=== PATIENT | female | born 1985 | race Asian ===

== ENCOUNTER 2017-04-09 12:08 | Emergency (ER) | payer OTHER ==
[2017-04-09] MEDS ORDERED: NACL 0.9% 1000 ML 1,000 ML IV ONE (13:17)
[2017-04-09 13:53] LABS: Anion Gap 17 mmol/L; Blood Urea Nitrogen 9 mg/dL (7-17); Calcium 8.9 mg/dL (8.4-10.2); Carbon Dioxide 26 mmol/L (22-30); Chloride 100.8 mmol/L (98-107); Glucose 86 mg/dL (65-100); Potassium 3.6 mmol/L (3.6-5.0); Sodium 140 mmol/L (137-145)
[2017-04-09 14:25] LABS: Basophils % (Auto) 0.7 % (0.0-1.8); Eosinophils % (Auto) 1.6 % (0.0-4.3); Hemoglobin 10.5 gm/dl (10.1-14.3); Mean Corpuscular HGB Conc 31 % (30-34); Platelet Count 337 K/mm3 (140-440); Red Cell Distribution Width 18.8 % (13.2-15.2); White Blood Count 4.9 K/mm3 (4.5-11.0)
[2017-04-09 14:26] LABS: Mean Corpuscular Hemoglobin 20 pg (28-32); Mean Corpuscular Volume 64 fl (79-97)
--- NOTE | 2017-04-09 14:47 | Emergency Department Report ---
ED General Adult HPI - General Chief complaint: Dizziness Stated complaint: PHY REF/DIZZINESS/ANEMIA/HYPOTENSION Time Seen by Provider: 04/09/17 13:16 Source: patient Mode of arrival: Ambulatory Limitations: No Limitations - History of Present Illness Initial comments: The patient was sent by Dr. Prado her primary care provider when she was found to have blood pressure 90/60. The patient tells me quite clearly that this was a routine exam and that she was asymptomatic. Dr. Prado reports that she had a hemoglobin of 10.9. The patient again is completely asymptomatic here. Her review of systems is entirely negative. A repeat blood pressure is within the normal range. She denies any recent travel. -: unknown Associated Symptoms: denies other symptoms - Related Data Allergies Allergy/AdvReac Type Severity Reaction Status Date / Time No Known Allergies Allergy Verified 04/09/17 12:45 ED Review of Systems ROS: Stated complaint: PHY REF/DIZZINESS/ANEMIA/HYPOTENSION Other details as noted in HPI Constitutional: denies: chills, fever Eyes: denies: eye pain, eye discharge, vision change ENT: denies: ear pain, throat pain Respiratory: denies: cough, shortness of breath, wheezing Cardiovascular: denies: chest pain, palpitations Endocrine: no symptoms reported Gastrointestinal: denies: abdominal pain, nausea, diarrhea Genitourinary: denies: urgency, dysuria, discharge Musculoskeletal: denies: back pain, joint swelling, arthralgia Skin: denies: rash, lesions Neurological: denies: headache, weakness, paresthesias Psychiatric: denies: anxiety, depression Hematological/Lymphatic: denies: easy bleeding, easy bruising ED Past Medical Hx - Past Medical History Previous Medical History?: Yes Additional medical history: cholesterol - Surgical History Past Surgical History?: Yes Additional Surgical History: , sinus - Social History Smoking Status: Never Smoker Substance Use Type: None ED Physical Exam - General Limitations: No Limitations General appearance: alert, in no apparent distress - Head Head exam: Present: atraumatic, normocephalic - Eye Eye exam: Present: normal appearance, PERRL, EOMI. Absent: scleral icterus - ENT ENT exam: Present: mucous membranes moist - Neck Neck exam: Present: normal inspection - Respiratory Respiratory exam: Present: normal lung sounds bilaterally. Absent: respiratory distress - Cardiovascular Cardiovascular Exam: Present: regular rate, normal rhythm. Absent: systolic murmur, diastolic murmur, rubs, gallop - GI/Abdominal GI/Abdominal exam: Present: soft, normal bowel sounds. Absent: distended, tenderness, guarding, rebound, rigid - Extremities Exam Extremities exam: Present: normal inspection - Back Exam Back exam: Present: normal inspection - Neurological Exam Neurological exam: Present: alert, oriented X3, CN II-XII intact. Absent: motor sensory deficit - Psychiatric Psychiatric exam: Present: normal affect, normal mood - Skin Skin exam: Present: warm, dry, intact, normal color. Absent: rash ED Course Vital Signs 04/09/17 12:42 Temperature 98.8 F Pulse Rate 67 Respiratory 16 Rate Blood Pressure 98/68 O2 Sat by Pulse 100 Oximetry - Reevaluation(s) Reevaluation #1: Patient advised to take by mouth fluids. She is persistently asymptomatic. Her laboratory testing does not indicate an indication for further emergency department workup for stabilization. Her blood pressure is normal. She is somewhat slender and denies history of hypertension. 04/09/17 14:46 ED Medical Decision Making - Lab Data Result diagrams: 04/09/17 13:23 04/09/17 13:23 Laboratory Results - last 24 hr 04/09/17 04/09/17 04/09/17 13:23 13:23 13:23 WBC 4.9 RBC 5.30 H Hgb 10.5 Hct 34.0 MCV 64 L MCH 20 L MCHC 31 RDW 18.8 H Plt Count 337 Lymph % (Auto) 38.6 H [place] % (Auto) 7.4 H Eos % (Auto) 1.6 Baso % (Auto) 0.7 Lymph # 1.9 [place] # 0.4 Eos # 0.1 Baso # 0.0 Seg Neutrophils % 51.7 Seg Neutrophils # 2.5 Sodium 140 Potassium 3.6 Chloride 100.8 Carbon Dioxide 26 Anion Gap 17 BUN 9 Creatinine 0.5 L Estimated GFR > 60 BUN/Creatinine Ratio 18.00 Glucose 86 Calcium 8.9 HCG, Qual Negative Critical care attestation.: If time is entered above; I have spent that time in minutes in the direct care of this critically ill patient, excluding procedure time. ED Disposition Clinical Impression: Hypotensive episode Anemia Qualifiers: Anemia type: unspecified type Qualified Code(s): D64.9 - Anemia, unspecified Disposition: DC- TO HOME OR SELFCARE Is pt being admited?: No Does the pt Need Aspirin: No Condition: Stable Instructions: Anemia (ED) Additional Instructions: You have a itst-rl-[id number] anemia. Further workup is recommended with your primary care doctor Dr. Prado or a workers compensation claims specialist who I have referred due to. Increase fluid intake. Return any specific symptoms. Referrals: DAVON ARIZA MD [Staff Physician] - 3-5 Days EDUARDO PRADO MD [Staff Physician] - 2-3 Days Time of Disposition: 14:48
[2017-04-09 14:58] VITALS: BP 100/55
[2017-04-09 15:48] LABS: Bacteria,Urine 1+ /HPF (Negative); Bilirubin,Urine NEG (Negative); Blood,Urine SM (Negative); Ketones,Urine NEG (Negative); Leukocyte Esterase,Urine SM (Negative); Nitrite,Urine NEG (Negative); Protein,Urine <15 mg/dL mg/dL (Negative); Urobilinogen,Urine < 2.0 mg/dL (<2.0); WBC,Urine < 1.0 /HPF (0.0-6.0)
--- NOTE | 2017-04-09 19:08 | Emergency Department Report ---
Entered by BELLA COYNE, acting as scribe for REIN GILMORE PA. Chief Complaint: Dizziness Stated Complaint: PHY REF/DIZZINESS/ANEMIA/HYPOTENSION Time Seen by Provider: 04/09/17 13:08 - HPI History of Present Illness: Patient with PMHx high cholesterol c/o of low blood pressure today. Patient was sent to the ED by her PCP for evaluation of hypotension. Denies having to take medication for blood pressure. In the ED, patient c/o generalized headache and dizziness for 2 days. Reports normal PO intake. Denies blurry vision. Denies chest pain. Denies abdominal pain. - ROS Review of Systems: All systems are negative unless stated in the HPI above. - Exam Vital Signs: Vital Signs 04/09/17 12:42 Temperature 98.8 F Pulse Rate 67 Respiratory 16 Rate Blood Pressure 98/68 O2 Sat by Pulse 100 Oximetry Physical Exam: GENERAL: Patient is alert and oriented x 3. No apparent distress, normal gait, atraumatic. EYES: Extraocular movements are intact. Pupils are equal, round, and reactive to light and accommodation. LUNGS: Symmetrical with respiration. No wheezing, rales or crackles, CTAB. HEART: Regular rate and rhythm with normal S1/S2 present. No murmurs, rubs, or gallops. MSE screening note: Focused history and physical exam performed. Due to findings the following was ordered: ED Medical Decision Making - Medical Decision Making Patient screened by provider in triage area. Labs ordered and sent in for patient. Patient sent to be seen by MD on main ED side. ED Disposition for MSE Condition: Stable This documentation as recorded by the scribe,BELLA COYNE,accurately reflects the service I personally performed and the decisions made by MANDO kirkpatrick OYINLOLA A, PA.
== END 2017-04-09 15:30 | disposition home or self-care (01) ==
LOC: ED 12:08
DX: I95.9 Hypotension, unspecified (principal); D64.9 Anemia, unspecified; E78.00 Pure hypercholesterolemia, unspecified
CPT/HCPCS: 36415; 80048; 81001; 84703; 85025; 99283

== ENCOUNTER 2017-07-20 14:16 | Day surgery (SDC) | payer OTHER ==
[2017-07-20] MEDS ORDERED: PEPCID IV NR (15:00)
[2017-07-20] MEDS ORDERED: VERSED IV NR (15:00)
[2017-07-20] MEDS ORDERED: DILAUDID IV PRN ×2 (15:00→15:04)
[2017-07-20] MEDS ORDERED: NACL 0.9% 1000 ML 1,000 ML IV SCH (15:00)
[2017-07-20] MEDS ORDERED: ZOFRAN IV PRN (15:00)
--- NOTE | 2017-07-20 15:00 | Anesthesia Day of Surgery ---
Anesthesia Day of Surgery - Day of Surgery Patient Examined: Yes Patient is NPO: Yes
--- NOTE | 2017-07-20 15:00 | Anesthesia Consultation ---
Anesthesia Consult and Med Hx Date of service: 07/20/17 - Airway Anesthetic Teeth Evaluation: Good, Caps (top front) ROM Head & Neck: Adequate Mental/Hyoid Distance: Adequate Mallampati Class: Class II Intubation Access Assessment: Probably Good - Pulmonary Exam CTA: Yes - Cardiac Exam Cardiac Exam: RRR - Pre-Operative Health Status ASA Pre-Surgery Classification: ASA1 Proposed Anesthetic Plan: General - Pulmonary Hx Smoking: No - Cardiovascular System Hx Hypertension: No - Other Systems Hx Obesity: No - Additional Comments Anesthesia Medical History Comments: missed
--- NOTE | 2017-07-20 15:35 | Short Stay Summary ---
Short Stay Documentation Date of service: 07/20/17 Narrative H&P: C/O: Vaginal bleeding 32-year-old at sure gestational age presents with above. Essential history this patient with vaginal bleeding seen at [facility] on 07/10/17 , vaginal ultrasound showed a 12 cm uterus with a large in homogeneous mass measuring 5 cm. There is no central central peripheral flow is present. Differentials include molar versus hematoma. B HCG was ~ 1427. She was seen at [facility] on 07/18/2017 with repeat ultrasound and beta hCG ordered. Her beta hCG Quant was 923 on 07/18/2017 I have an oral report of no change in her ultrasound findings from CNM/nurse practitioner Gynhx: None Medhx: None Sughx:C-S # 3, Sinus surgery Obhx:As above Meds:Iron All:NKDA Fshx:, no smoking Exam was benign A: Missed AB with Retained products r/o molar P: -Obtain routine labs -Proceed to OR for D&C once available -She has been consented - History Past Medical History: No medical history Past Surgical History: (# 3), Other (Sinus surgery) Social history: , full code, no smoking, no alcohol abuse, no prescription drug abuse, no IV drug use - Allergies and Medications Current Medications: Allergies No Known Allergies Allergy (Verified 04/09/17 12:45) Active Medications Famotidine (Pepcid) 20 mg IV PREOP NR Stop: 07/20/17 23:59 Hydromorphone HCl (Dilaudid) 0.5 mg IV Q10MIN PRN PRN Reason: Pain , Severe (7-10) Stop: 07/20/17 23:59 Sodium Chloride (Nacl 0.9% 1000 Ml) 1,000 mls @ 75 mls/hr IV DIRECT WENDY Midazolam HCl (Versed) 2 mg IV PREOP NR Stop: 07/20/17 23:59 - Physical exam General appearance: no acute distress, well-nourished Lungs: Clear to auscultation, Normal air movement Heart: Regular rate, Normal S1, Normal S2 Gastrointestinal: normal, normoactive bowel sounds, no tenderness, no distended , no masses, no guarding, no obese Female Genitourinary: normal Extremities: no ischemia Neurological: Normal speech - Brief post op/procedure progress note Date of procedure: 07/20/17 Pre-op diagnosis: Missed AB with products of conception rule out molar Post-op diagnosis: same Procedure: Suction D&C Anesthesia: GETA Findings: Parous OS, uterus sounded to 10 cm Surgeon: EVIE WEBBER Estimated blood loss: other (200 mL) Pathology: list (Products of conception) Specimen disposition: to lab Condition: stable - Hospital course Hospital course: Uncomplicated course and PACU. She is discharged home in stable condition She needs to follow up in clinic on Sunday to check her beta hCG Quant She should continue Cytotec 400 g at home every 4 hours 4 doses only - Disposition Condition at discharge: Good Disposition: DC-01 TO HOME OR SELFCARE - Discharge Diagnoses (1) S/P D&C (status post dilation and curettage) Status: Acute (2) Missed with demise before 20 completed weeks of gestation Status: Acute (3) Retained products of conception Status: Acute Short Stay Discharge Plan Activity: no driving until cleared by PCP (no driving on narcotics), other ( Pelvic rest 4 weeks) Weight Bearing Status: Weight Bear as Tolerated Diet: regular Follow up with: PRIMARY CAREMD [Primary Care Provider] - 7 Days EVIE WEBBER MD [Staff Physician] - 07/23/17 (Needs beta hCG test) Prescriptions: Acetaminophen 325 mg PO Q6HR #30 solution Misoprostol [Cytotec] 400 mcg PO Q4H #8 tablet Multivitamin with Iron [Multivitamins with Iron] 1 each PO DAILY #30 tablet
[2017-07-20 15:45] LABS: Hematocrit 37.8 % (30.3-42.9); Hemoglobin 12.5 gm/dl (10.1-14.3)
[2017-07-20] MEDS ORDERED: DOXYCYCLINE HYCLATE 200 MG in NACL 0.9% 250ML 250 ML IV ONE (16:15)
[2017-07-20] MEDS ORDERED: DIPRIVAN 10 MG/ML IV ONE (16:40)
[2017-07-20] MEDS ORDERED: SUBLIMAZE ONE (16:40)
[2017-07-20] MEDS ORDERED: XYLOCAINE MPF 2% ONE (16:40)
[2017-07-20] MEDS ORDERED: CYTOTEC VG ONE (17:05)
[2017-07-20] MEDS ORDERED: ePHEDrine SULFATE ONE (17:25)
[2017-07-20] MEDS ORDERED: SILVER NITRATE TP ONE ×3 (17:29→17:31)
[2017-07-20] MEDS ORDERED: NACL 0.9% IR ONE (17:29)
[2017-07-20] MEDS ORDERED: CYTOTEC PR ONE (17:29)
--- NOTE | 2017-07-20 17:45 | Operative Report ---
Operative Report Operative Report: DATE: 07/20/2017 PREOPERATIVE DIAGNOSIS: SAB with retained products of conception r/o molar POSTOP DIAGNOSIS: Same NAME OF PROCEDURE: Suction D&C SURGEON: EVIE WEBBER MD ASSISTANT TEACHING PROFESSOR: None ANESTHESIA: General endotracheal EBL: 200 mL PATHOLOGY SPECIMEN: products conception URINE OUTPUT: 200 mL FINDINGS: Multi parous-appearing os, uterus sounded to 10 cm, DESCRIPTION OF PROCEDURE: After informed consent, patient was taken to the operating room where she was prepped and draped in a sterile fashion. Reddy speculum was placed in the patient's vagina single-tooth was used to grab the anterior lip and uterus was sounded to 10 cm. Cervical os was serially dilated to a max of 31, size 10 suction curet was then advanced into the patient's cervical os without difficulty the fundus was palpated gently and the curet was pulled back. In a rotary manner, the uterus was cleared of all products of conception. She tolerated the procedure well, lap and instrument counts were correct 2, she received 800 g of misoprostol PA and 200 mg of doxycycline IV. She is transferred to PACU in stable condition
[2017-07-20] MEDS ORDERED: NORCO 5/325 PO PRN (17:54)
[2017-07-20] MEDS ORDERED: TYLENOL PO PRN (17:54)
--- NOTE | 2017-07-20 18:06 | Post Anesthesia Evaluation ---
- Post Anesthesia Evaluation Patient Participated: Yes Airway Patent: Yes Stable Respiratory Function: Yes Nausea/Vomiting: No Temp > 96.8F: Yes Pain Manageable: Yes Adequeate Hydration: Yes Anesthesia Complications: No Block Receding Appropriately: Not Applicable Patient on Ventilator: No
[2017-07-20] MEDS ORDERED: TORADOL IV PRN (18:29)
[2017-07-20] MEDS ORDERED: ZOFRAN ONE (18:30)
[2017-07-20] MEDS ORDERED: DECADRON ONE (18:30)
[2017-07-20] MEDS ORDERED: NEO SYNEPHRINE/NS Syringe(OR USE) IV ONE (18:30)
[2017-07-20] MEDS ORDERED: TORADOL ONE (18:32)
[2017-07-20] MEDS ORDERED: PITOCin/NS 20 UNIT/1000ML DRIP 20 UNITS/1,000 ML BAG IV SCH (19:00)
[2017-07-20 21:30] VITALS: BP 105/60
== END 2017-07-20 20:40 | disposition home or self-care (01) ==
LOC: OR 14:16
PROVIDERS: ATTEND Obstetrics & Gynecology Gynecology
DX: O02.1 Missed abortion (principal); Z98.890 Other specified postprocedural states; Z98.891 History of uterine scar from previous surgery
CPT/HCPCS: 36415; 59820; 85014; 85018; 86850; 86900; 86901; 88305; J1100; J1170; J1885; J2250; J2370; J2405; J2590; J2704; J3010; J7030; J7050

== ENCOUNTER 2018-03-22 08:37 | Emergency (ER) | payer OTHER ==
[2018-03-22 08:56] VITALS: BP 105/66
[2018-03-22 09:28] LABS: Basophils % (Auto) 0.7 % (0.0-1.8); Eosinophils # (Auto) 0.1 K/mm3 (0.0-0.4); Eosinophils % (Auto) 2.4 % (0.0-4.3); Hematocrit 42.2 % (30.3-42.9); Hemoglobin 13.9 gm/dl (10.1-14.3); Lymphocytes # (Auto) 1.6 K/mm3 (1.2-5.4); Lymphocytes % (Auto) 33.8 % (13.4-35.0); Mean Corpuscular HGB Conc 33 % (30-34); Mean Corpuscular Hemoglobin 28 pg (28-32); Mean Corpuscular Volume 83 fl (79-97); Monocytes # (Auto) 0.3 K/mm3 (0.0-0.8); Monocytes % (Auto) 6.2 % (0.0-7.3); Platelet Count 236 K/mm3 (140-440); Red Blood Count 5.07 M/mm3 (3.65-5.03); Red Cell Distribution Width 15.7 % (13.2-15.2)
[2018-03-22 09:43] LABS: Alanine Aminotransferase 13 units/L (7-56); Albumin 4.3 g/dL (3.9-5); BUN/Creatinine Ratio 18; Blood Urea Nitrogen 9 mg/dL (7-17); Calcium 8.7 mg/dL (8.4-10.2); Hemolysis Index 10
--- NOTE | 2018-03-22 09:47 | Emergency Department Report ---
Blank Doc - Documentation Documentation: 32-year-old female with past surgery and history and elevated cholesterol presents to the hospital with complaints intermittent right lower quadrant pain 2-3 months. Worse palpation. Denies associated symptoms including nausea, vomiting, diarrhea, vaginal discharge, dysuria, fever, or hematuria. Patient was instructed by PMD Dr. Blanton at [facility] to come to the ER for evaluation labs pending ct a/p Iv contrast pt declines offer for pain med midlevel to see
[2018-03-22 09:58] LABS: Bilirubin,Urine NEG (Negative); Blood,Urine SM (Negative); Color,Urine Yellow (Yellow); Mucus,Urine FEW /HPF; Protein,Urine <15 mg/dL mg/dL (Negative); Urobilinogen,Urine < 2.0 mg/dL (<2.0)
--- NOTE | 2018-03-22 11:09 | Cat Scan Report ---
CT ABDOMEN AND PELVIS WITH CONTRAST INDICATION: RLQ pain. COMPARISON: None similar at this institution. FINDINGS: Abdomen and pelvis CT performed following intravenous administration of 100 cc of Omnipaque 300. LUNG BASES: Unremarkable. ABDOMEN: Approximately 5 cm transverse rectus diastasis with an umbilical/supraumbilical hernia/outward bowing containing fat and a small segment of nonobstructed mid transverse colon as on axial image 104, series 2, amongst others. Nonopacified GI tract evaluation otherwise limited. Normal appendix. Left hepatic lobe tip extends into the left upper quadrant. Right hepatic lobe approximately 20.5 cm in mid clavicular length. Spleen, gallbladder, pancreas, adrenals, aorta, IVC and the kidneys grossly within normal limits. Couple of subcentimeter, indeterminate right renal cortical hypodensities. No ascites or size significant adenopathy. PELVIS: An intrauterine device appears well-positioned with otherwise grossly normal adnexae, urinary bladder and rectosigmoid CT appearance. No free fluid or significant adenopathy. Slight spinal curvature, possibly scoliosis versus positional. Slight spinal degenerative spurring at few levels. CONCLUSION: No acute right lower quadrant CT abnormality with few other findings as prominent/enlarged liver, rectus diastasis/umbilical hernia and an IUD, amongst others, as above. Please correlate. Thank you for the opportunity to participate in this patient's care.
[2018-03-22] MEDS ORDERED: ZITHROMAX PO ONE (12:23)
[2018-03-22] MEDS ORDERED: XYLOCAINE 1% MPF 5 mL INFILTRATI ONE (12:23)
[2018-03-22] MEDS ORDERED: ROCEPHIN IM ONE (12:23)
--- NOTE | 2018-03-22 12:23 | Emergency Department Report ---
ED Abdominal Pain HPI - General Chief Complaint: Abdominal Pain Stated Complaint: ABDOMINAL PAIN Time Seen by Provider: 03/22/18 09:27 Source: patient Mode of arrival: Ambulatory Limitations: No Limitations - History of Present Illness Initial Comments: 32-year-old female past medical history none presents with complaint of 2-3 weeks of right lower quadrant discomfort which is intermittent. Patient denies fevers chills nausea or vomiting. Denies any current vaginal bleeding. Last menstrual period 03/15/18. Patient does have an IUD in place. Does state that she has slight white thick vaginal discharge. Patient is awake alert and oriented 3 accompanied by at bedside. Patient started screaming by Dr. Cain. SHI Complaint: abdominal pain Onset/Timin -: week(s) Location: RLQ Radiation: RLQ Severity: moderate - Related Data Home Medications Medication Instructions Recorded Confirmed Last Taken Iron 1 tab PO DAILY 07/20/17 07/20/17 07/19/17 Previous Rx's Medication Instructions Recorded Last Taken Type Acetaminophen 325 mg PO Q6HR #30 solution 07/20/17 Unknown Rx Misoprostol [Cytotec] 400 mcg PO Q4H #8 tablet 07/20/17 Unknown Rx Multivitamin with Iron 1 each PO DAILY #30 tablet 07/20/17 Unknown Rx [Multivitamins with Iron] Ibuprofen [Motrin] 600 mg PO Q8H PRN #20 tablet 03/22/18 Unknown Rx metroNIDAZOLE [Metronidazole] 500 mg PO BID #14 tablet 03/22/18 Unknown Rx Allergies Allergy/AdvReac Type Severity Reaction Status Date / Time No Known Allergies Allergy Verified 04/09/17 12:45 ED Review of Systems ROS: Stated complaint: ABDOMINAL PAIN Other details as noted in HPI ED Past Medical Hx - Past Medical History Previous Medical History?: No Hx Hypertension: No Additional medical history: cholesterol - Surgical History Past Surgical History?: Yes Additional Surgical History: , sinus - Social History Smoking Status: Never Smoker Substance Use Type: None - Medications Home Medications: Home Medications Medication Instructions Recorded Confirmed Last Taken Type Acetaminophen 325 mg PO Q6HR #30 solution 07/20/17 Unknown Rx Iron 1 tab PO DAILY 07/20/17 07/20/17 07/19/17 History Misoprostol [Cytotec] 400 mcg PO Q4H #8 tablet 07/20/17 Unknown Rx Multivitamin with Iron 1 each PO DAILY #30 tablet 07/20/17 Unknown Rx [Multivitamins with Iron] Ibuprofen [Motrin] 600 mg PO Q8H PRN #20 tablet 03/22/18 Unknown Rx metroNIDAZOLE [Metronidazole] 500 mg PO BID #14 tablet 03/22/18 Unknown Rx ED Physical Exam - General Limitations: No Limitations ED Course Vital Signs 03/22/18 08:52 Temperature 98.1 F Pulse Rate 68 Respiratory 16 Rate Blood Pressure 105/66 O2 Sat by Pulse 99 Oximetry ED Medical Decision Making - Lab Data Result diagrams: 03/22/18 09:06 03/22/18 09:06 - Medical Decision Making A/P: Abdominal pain, pelvic pain, bacterial vaginosis 1-wet prep positive for BV. No Trichomonas no yeast. Treated empirically for possible cervicitis based on clinical exam 2-CT scan unremarkable. IUD in place. IUD string is visible on pelvic exam 3-I discussed the lab findings with Dr. Colón. Patient denies any significant dysuria. We'll treat for BV. Motrin when necessary. Follow-up with primary care and [facility]- Critical care attestation.: If time is entered above; I have spent that time in minutes in the direct care of this critically ill patient, excluding procedure time. ED Disposition Clinical Impression: Pelvic pain, Bacterial vaginosis Disposition: - TO HOME OR SELFCARE Is pt being admited?: No Does the pt Need Aspirin: No Condition: Stable Instructions: Abdominal Pain (ED), Bacterial Vaginosis (ED) Prescriptions: Ibuprofen [Motrin] 600 mg PO Q8H PRN #20 tablet PRN Reason: Pain metroNIDAZOLE [Metronidazole] 500 mg PO BID #14 tablet Referrals: [facility] [Provider Group] - 3-5 Days Forms: STI Treatment and Prevention, Accompanied Note Time of Disposition: 13:09
== END 2018-03-22 13:28 | disposition home or self-care (01) ==
LOC: ED 08:37
DX: N76.0 Acute vaginitis (principal); R10.2 Pelvic and perineal pain
CPT/HCPCS: 36415; 74177; 80053; 81001; 84703; 85025; 87210; 87591; 96372; 99284; J0696; Q9967